=== PATIENT | male | born 1990 | race Caucasian/White ===

== ENCOUNTER 2018-03-14 21:09 | Inpatient (IN) | payer OTHER ==
[~2018-03-14] VITALS: Ht 182.9 cm; Wt 103.0 kg
--- NOTE | ~2018-03-14 | CN ---
PATIENT NAME:LOIDA ARENAS MEDICAL RECORD: [id number] : 89 LOCATION:[id number] ADMIT DATE: 03/15/18 ACCOUNT: [id number] CONSULTING PHYSICIAN: PARKER MCNAMARA MD REFERRING PHYSICIAN: KHANG GRAHAM MD DATE OF CONSULTATION: 03/15/2018 CONSULT REQUESTING PHYSICIAN: Dr. Elyssa Graham REASON FOR CONSULTATION: Vent management. HISTORY OF PRESENT ILLNESS: Mr. Arenas is a 28-year-old gentleman, who was brought into the ER intubated. The history was taken mainly by reviewing the patient's note and talking to the nursing staff. The patient's father did suicide when he was a child. He was talking to a friend about his father and then he went and started drinking alcohol. The patient fell down and broke his teeth. The patient was combative, and he also vomited and most likely aspirated at the same time. The patient brought into the ER intubated to protect his airway. REVIEW OF SYSTEMS: Details not obtainable. PAST MEDICAL HISTORY: Anemia and depression. PAST SURGICAL HISTORY: None. ALLERGIES: There is no known drug allergy. MEDICATIONS: [facility] is reviewed. PERSONAL AND SOCIAL HISTORY: Probably, the patient is nonsmoker. He is a drinker. FAMILY HISTORY: Significant for neurological diseases. His father did suicide. PHYSICAL EXAMINATION: GENERAL: Now, the patient is orally intubated and sedated. VITAL SIGNS: The blood pressure is 115/68, pulse is 73, respiration is 16, temperature 97.2, SpO2 is 98%. He is on assist control mechanical ventilation, tidal volume 600 and FiO2 of 40%. HEENT: Conjunctivae pink. Sclerae not icteric. NECK: Supple. No JVD. CHEST: The chest is excursion is minimal on both sides. There are bilateral crackles. No wheezing. HEART: Rhythm regular, normal sound. No murmur. ABDOMEN: Abdomen is soft. Bowel sounds present. No hepatosplenomegaly. RECTAL: Deferred. EXTREMITIES: No cyanosis, no clubbing, no pedal edema. SKIN: The skin is warm, normal turgor. CENTRAL NERVOUS SYSTEM: The patient is awake and alert. There is no obvious cranial nerve abnormality. The gait was not tested. CHEST RADIOGRAPH: There are bibasilar infiltrates. The ET tube is in good position. CONSULT REPORT [id number] LO[facility] ARENAS LABORATORY DATA: CBC: The WBC is 7000, hemoglobin 13.6, hematocrit 41, the platelet count 220. Chemistry: Sodium 138, potassium 3.7, BUN is 18, creatinine 1.2. The liver enzymes within normal range. ABG: The pH on admission was 7.29, pCO2 was 49.8, the pO2 was 145. The lactic acid level initial was 1.83, the repeat was 2.24. IMPRESSION: 1. Acute hypercapnic respiratory failure, most likely secondary to alcohol intoxication. 2. Respiratory acidosis. 3. Alcohol intoxication. 4. Aspiration pneumonia while the patient was vomiting. 5. Acute mental status changes secondary to alcohol intoxication. 6. History of depression. RECOMMENDATIONS: 1. We will continue mechanical ventilation today. Continue meropenem. 2. Sputum culture. 3. DVT and GI blood ulcer prevention. 4. Albuterol-ipratropium nebulizer. 5. Follow up labs and chest radiograph. Discussed with the nursing staff. Discussed with Dr. Graham. Thank you for involving me in the care of Mr. Arenas. TRANSINT:[id number] Voice Confirmation ID: [id number] DOCUMENT ID: [id number] PARKER MCNAMARA MD at 1110 CC: [id number] DICTATION DATE: 03/15/18 1202 DIGITAL STRATEGY DIRECTOR: 03/15/18 1240 DIS IN 03/16/18 [place] [address]
[2018-03-14 22:25] LABS: BASOPHILS 0.3 % (0-2); EOSINOPHILS 1.6 % (0-7); HEMOGLOBIN 13.6 g/dL (13.5-17.5); IMMATURE GRANULOCYTES 0.1 % (0-5); LYMPHOCYTES 21.4 % (15-50); MCH 28.8 pg (26.0-34.0); MCHC 33.2 g/dL (31.0-37.0); MCV 86.9 fL (80.0-100.0); MEAN PLATELET VOLUME 11.1 fL (7.4-10.4); MONOCYTES 10.1 % (2-11); NEUTROPHILS 66.5 % (40-80); PLATELET COUNT 220 10x3/uL (130-400); RBC 4.72 10x6/uL (4.20-6.10); RDW 13.2 % (11.5-14.5)
[2018-03-14 22:30] VITALS: BP 106/68
[2018-03-14 22:42] LABS: ALBUMIN 3.9 g/dL (3.4-5.0); ALKALINE PHOSPHATASE 65 U/L (46-116); ALT (SGPT) 28 U/L (10-68); CALC OSMOLALITY 277 mosm/kg (275-300); CALCIUM 8.1 mg/dL (8.5-10.1); CARBON DIOXIDE 24.1 mmol/L (21.0-32.0); CHLORIDE - SERUM 105 mmol/L (98-107); CREATININE - SERUM 1.2 mg/dL (0.6-1.3); GLUCOSE 93 mg/dL (74-106); POTASSIUM - SERUM 3.7 mmol/L (3.5-5.1); PROTEIN - SERUM 7.2 g/dL (6.4-8.2); SODIUM 138 mmol/L (136-145); UREA NITROGEN 18 mg/dL (7-18); eGFR NON AFRICAN AMERICAN 77 mL/min (90-120)
[2018-03-14 23:32] VITALS: BP 120/71
[2018-03-14 23:39] LABS: UDS - AMPHET NEGATIVE QUAL (NEGATIVE); UDS - BARB NEGATIVE QUAL (NEGATIVE); UDS - BENZO POSITIVE QUAL (NEGATIVE); UDS - COCAINE NEGATIVE QUAL (NEGATIVE); UDS - OPIATE NEGATIVE QUAL (NEGATIVE); UDS - PCP NEGATIVE QUAL (NEGATIVE); UDS - THC NEGATIVE QUAL (NEGATIVE)
[2018-03-14 23:41] LABS: APPEARANCE CLEAR (CLEAR); BILIRUBIN NEGATIVE (NEGATIVE); COLOR YELLOW (YELLOW); GLUCOSE NEGATIVE (NEGATIVE); KETONE NEGATIVE (NEGATIVE); NITRITE NEGATIVE (NEGATIVE); PROTEIN TRACE mg/dL (NEGATIVE); UROBILINOGEN NORMAL (NORMAL)
[2018-03-14 23:47] LABS: AMORPHOUS SEDIMENT >1+ /lpf (NONE SEEN); BACTERIA FEW /hpf (NONE SEEN); EPITHELIAL CELLS OCC /hpf (0-5); GRANULAR CAST OCC /lpf (NONE SEEN); HYALINE CAST 0-5 /lpf (NONE SEEN); MUCUS <1+ /lpf (NONE SEEN); RED CELLS - URINE 0-5 /hpf (0-5); WHITE CELLS - URINE 0-5 /hpf (0-5)
[2018-03-15] VITALS (19 sets, daily range): BP systolic 106–151; BP diastolic 45–90; BMI 30.8
[2018-03-16] VITALS (15 sets, daily range): BP systolic 96–151; BP diastolic 48–96; Ht 182.9 cm; Wt 103.0 kg
[2018-03-16 04:29] LABS: BASOPHILS 0.3 % (0-2); EOSINOPHILS 2.8 % (0-7); HEMATOCRIT 39.9 % (42.0-54.0); HEMOGLOBIN 13.2 g/dL (13.5-17.5); IMMATURE GRANULOCYTES 0.1 % (0-5); LYMPHOCYTES 17.6 % (15-50); MCH 28.6 pg (26.0-34.0); MCHC 33.1 g/dL (31.0-37.0); MCV 86.6 fL (80.0-100.0); MEAN PLATELET VOLUME 11.4 fL (7.4-10.4); MONOCYTES 8.8 % (2-11); NEUTROPHILS 70.4 % (40-80); PLATELET COUNT 203 10x3/uL (130-400); RBC 4.61 10x6/uL (4.20-6.10); RDW 13.2 % (11.5-14.5)
[2018-03-16 04:57] LABS: CALC OSMOLALITY 275 mosm/kg (275-300); CALCIUM 8.3 mg/dL (8.5-10.1); CARBON DIOXIDE 25.2 mmol/L (21.0-32.0); CHLORIDE - SERUM 107 mmol/L (98-107); CREATININE - SERUM 0.9 mg/dL (0.6-1.3); GLUCOSE 83 mg/dL (74-106); POTASSIUM - SERUM 3.5 mmol/L (3.5-5.1); SODIUM 139 mmol/L (136-145); eGFR NON AFRICAN AMERICAN > 90 mL/min (90-120)
[2018-03-16 05:10] LABS: UREA NITROGEN 10 mg/dL (7-18)
[2018-03-16] MEDS ORDERED: PAXIL10 MG PO (19:24)
[2018-03-16] MEDS ORDERED: AUGMENTIN 875-11 TAB PO (19:30)
== END 2018-03-16 20:26 | disposition home or self-care (01) | DRG 208 ==
LOC: D.ER 21:09 → D.ICU 03-15 00:50 → D.EDHOLD 03-15 00:50 → D.ICU 03-15 00:58 → D.MS 03-16 17:15
PROVIDERS: Family Medicine
PROC: 0BH17EZ Insertion of Endotracheal Airway into Trachea, Via Natural or Artificial Opening (ICD-10-PCS; principal; 2018-03-15)
PROC: 5A1945Z Respiratory Ventilation, 24-96 Consecutive Hours (ICD-10-PCS; 2018-03-15)
DX: J96.02 Acute respiratory failure with hypercapnia (principal); J69.0 Pneumonitis due to inhalation of food and vomit; E87.2 Acidosis; F10.129 Alcohol abuse with intoxication, unspecified; R41.82 Altered mental status, unspecified; F32.9 Major depressive disorder, single episode, unspecified